=== PATIENT | male | born 1975 | race American Indian/Alaskan Native ===

== ENCOUNTER 2019-09-16 10:45 | Observation (INO) | payer OTHER ==
--- NOTE | 2019-09-16 11:22 | Event Note ---
ED Screening Note Date of service: 09/16/19 Time: 11:18 ED Screening Note: This is a 44 y.o. M. that presents to the ER with dizziness, night sweats, headache, and weakness x 2 weeks. PMH of HTN Off blood pressure medication for 6 years. Reports syncopal episode x 3 over 2 weeks. This initial assessment/diagnostic orders/clinical plan/treatment(s) is/are subject to change based on patients health status, clinical progression and re- assessment by fellow clinical providers in the ED. Further treatment and workup at subsequent clinical providers discretion. Patient/guardian urged not to elope from the ED as their condition may be serious if not clinically assessed and managed. Initial orders include: Labs
[2019-09-16 12:34] LABS: Basophils % (Auto) 0.4 % (0.0-1.8); Eosinophils % (Auto) 0.2 % (0.0-4.3); Hematocrit 45.3 % (35.5-45.6); Hemoglobin 15.3 gm/dl (11.8-15.2); Lymphocytes # (Auto) 2.2 K/mm3 (1.2-5.4); Lymphocytes % (Auto) 29.6 % (13.4-35.0); Mean Corpuscular HGB Conc 34 % (32-34); Mean Corpuscular Volume 95 fl (84-94); Monocytes # (Auto) 0.4 K/mm3 (0.0-0.8); Monocytes % (Auto) 5.8 % (0.0-7.3); Platelet Count 182 K/mm3 (140-440); Red Blood Count 4.76 M/mm3 (3.65-5.03); Red Cell Distribution Width 14.2 % (13.2-15.2)
[2019-09-16 12:44] LABS: Alanine Aminotransferase 20 units/L (7-56); Albumin 4.7 g/dL (3.9-5); BUN/Creatinine Ratio 13; Blood Urea Nitrogen 12 mg/dL (9-20); Calcium 9.6 mg/dL (8.4-10.2); Hemolysis Index 17
[2019-09-16 12:44] LABS: Bilirubin,Urine NEG (Negative); Blood,Urine NEG (Negative); Color,Urine Yellow (Yellow); Mucus,Urine 2+ /HPF; Urobilinogen,Urine < 2.0 mg/dL (<2.0)
--- NOTE | 2019-09-16 13:42 | Cat Scan Report ---
CT head/brain wo con INDICATION / CLINICAL INFORMATION: 44 years Male; Syncope, headache. TECHNIQUE: Routine CT head without contrast. All CT scans at this location are performed using CT dos e reduction for ALARA by means of automated exposure control. COMPARISON: None. FINDINGS: BRAIN / INTRACRANIAL CONTENTS: No acute hemorrhage, mass effect, midline shift, hydrocephalus, or acu te, large territorial infarct. In the right superior frontal gyrus, questionable low density area is seen. Though this may be artifactual or incidental, given the history of headaches, if there been no recent MRI scans, please obtain MR scan of the brain before and after gadolinium. CRANIOCERVICAL JUNCTION: No significant abnormality. ORBITS: No significant abnormality of visualized orbits. SINUSES / MASTOIDS: No significant abnormality of the visualized paranasal sinuses or mastoid air yakelin ls. ADDITIONAL FINDINGS: None. IMPRESSION: I do not see hemorrhage or space taking lesion in the brain Questionable low density area in the right superior frontal gyrus; if there had not been any recent M RI scans, please obtain MR scan of the brain before and after gadolinium administration. Signer Name: Sean Younger MD Signed: 09/16/2019 1:37 PM Workstation Name: [id number]
[2019-09-16] MEDS ORDERED: SODIUM CHLORIDE 0.9% 500 ML 500 ML IV ONE (14:18)
[2019-09-16] MEDS ORDERED: KETOROLAC 30 MG/1 ML INJ IV ONE (14:18)
[2019-09-16] MEDS ORDERED: HYDROcodone/ACETAMINOPHEN 5-325 MG TAB PO ONE (14:18)
[2019-09-16] MEDS ORDERED: SODIUM CHLORIDE 0.9% 1000 ML 1,000 ML ONE (14:32)
--- NOTE | 2019-09-16 14:32 | Emergency Department Report ---
HPI - General Chief Complaint: Weakness Time Seen by Provider: 09/16/19 11:18 - HPI HPI: 44-year-old -[place] male presents to the emergency department with the complaints of a two-week history of intermittent headache, some generalized weakness as well as some right arm weakness, decreased appetite, and the patient has passed out 3 times over these past 2 weeks. He had a syncopal episode 2 weeks ago, 3 days ago, and then again this morning. The headache is frontal and intermittent. He denies any vision change, slurred speech, facial droop. The patient has a questionable history of hypertension but has not been on any medications for the past few years as his blood pressure has been controlled. He has a primary care physician but has not seen them regarding his symptoms. He has not taken anything for his symptoms prior to presentation. Denies any tobacco use but does have some occasional marijuana use. ED Past Medical Hx - Past Medical History Previous Medical History?: No - Surgical History Past Surgical History?: No - Social History Smoking Status: Current Every Day Smoker Substance Use Type: Alcohol, Marijuana ED Review of Systems ROS: Stated complaint: FAINTED/VOMITING/CHEST TIGHT Other details as noted in HPI Comment: All other systems reviewed and negative Constitutional: weakness. denies: fever Eyes: denies: eye pain, vision change ENT: denies: ear pain, throat pain Respiratory: denies: cough, shortness of breath Physical Exam - Physical Exam Vital Signs: Vital Signs 09/16/19 11:18 Temperature 98.3 F Pulse Rate 96 H Respiratory 20 Rate Blood Pressure 144/101 O2 Sat by Pulse 98 Oximetry Physical Exam: GENERAL: The patient is well-developed well-nourished. HENT: Normocephalic. Atraumatic. Patient has moist mucous membranes. EYES: Extraocular motions are intact. Pupils equal reactive to light bilaterally. No nystagmus. NECK: Supple. Trachea is midline. CHEST/LUNGS: Clear to auscultation. There is no respiratory distress noted. HEART/CARDIOVASCULAR: Regular. There is no tachycardia. There is no murmur. ABDOMEN: Abdomen is soft, nontender. Patient has normal bowel sounds. There is no abdominal distention. SKIN: Skin is warm and dry. NEURO: The patient is awake, alert, and oriented. The patient is cooperative. Normal speech. No facial symmetry. No pronator drift. No dysmetria. MUSCULOSKELETAL: There is no tenderness or deformity. There is no limitation range of motion. There is no evidence of acute injury. ED Course Vital Signs 09/16/19 11:18 Temperature 98.3 F Pulse Rate 96 H Respiratory 20 Rate Blood Pressure 144/101 O2 Sat by Pulse 98 Oximetry ED Medical Decision Making - Lab Data Result diagrams: 09/16/19 12:12 09/16/19 12:12 - EKG Data -: EKG Interpreted by Me EKG shows normal: sinus rhythm, axis, intervals, QRS complexes (LVH), ST-T waves Rate: normal - EKG Data When compared to previous EKG there are: previous EKG unavailable Interpretation: LVH - Radiology Data Radiology results: report reviewed CT head/brain wo con INDICATION / CLINICAL INFORMATION: 44 years Male; Syncope, headache. TECHNIQUE: Routine CT head without contrast. All CT scans at this location are performed using CT dose reduction for ALARA by means of automated exposure control. COMPARISON: None. FINDINGS: BRAIN / INTRACRANIAL CONTENTS: No acute hemorrhage, mass effect, midline shift, hydrocephalus, or acute, large territorial infarct. In the right superior frontal gyrus, questionable low density area is seen. Though this may be artifactual or incidental, given the history of headaches, if there been no recent MRI scans, please obtain MR scan of the brain before and after gadolinium. CRANIOCERVICAL JUNCTION: No significant abnormality. ORBITS: No significant abnormality of visualized orbits. SINUSES / MASTOIDS: No significant abnormality of the visualized paranasal sinuses or mastoid air cells. ADDITIONAL FINDINGS: None. IMPRESSION: I do not see hemorrhage or space taking lesion in the brain Questionable low density area in the right superior frontal gyrus; if there had not been any recent MRI scans, please obtain MR scan of the brain before and after gadolinium administration. Signer Name: Sean Younger MD - Medical Decision Making This patient presents to the emergency department with a complaint of an intermittent frontal headache, some generalized weakness with concern for some arm weakness, multiple recent syncopal episodes. EKG does not show any morphology consistent with ST elevation AR or significant dysrhythmia. A CT scan of the head without contrast was done that did not show any obvious bleed, shift, mass. There are no obvious signs of ischemia but there was a read by radiology as a questionable low-density area in the right superior gyrus with recommendation for MRI scan. Patient's labs have been unremarkable including CBC, metabolic panel, troponin, d-dimer and thyroid level. Given the patient's intermittent headache, the abnormal CT brain and 3 episodes of syncope in the past 2 weeks including today, it is my recommendation for the patient to be admi tted to the hospital for further evaluation and treatment. Patient accepted for admission by the hospitalist, Dr Euceda. - Differential Diagnosis TIA, dysrhythmia, hypoglycemia, thyroid dysfunction Critical Care Time: No Critical care attestation.: If time is entered above; I have spent that time in minutes in the direct care of this critically ill patient, excluding procedure time. ED Disposition Clinical Impression: Recurrent syncope, Weakness, Abnormal CT of the head Headache Qualifiers: Headache type: unspecified Headache chronicity pattern: unspecified pattern Intractability: not intractable Qualified Code(s): R51 - Headache Disposition: OP ADMIT IP TO THIS HOSP Is pt being admited?: Yes Condition: Fair Referrals: PRIMARY CARE, [Primary Care Provider] - 3-5 Days Time of Disposition: 14:38
[2019-09-16 14:33] LABS: Amphetamine Screen,Urine PRESUMPTIVE NEGATIVE; Benzodiazepines Screen,Urine PRESUMPTIVE NEGATIVE; Cocaine Screen,Urine PRESUMPTIVE NEGATIVE; Methadone Screen,Urine PRESUMPTIVE NEGATIVE; Opiate Screen,Urine PRESUMPTIVE NEGATIVE
[2019-09-16 14:45] LABS: Cannabinoid Screen,Urine PRESUMPTIVE POSITIVE
--- NOTE | 2019-09-16 14:50 | History and Physical Report ---
History of Present Illness Chief complaint: I pass out every now and then History of present illness: 44 YO Male with Nicotine Dependence presents to ED for evaluation. Pt states that he has experienced intermittent headaches, generalized weakness, as well as right arm weakness over the past 2 weeks. Pt also reports over the past 3 years he has experienced multiple episodes of syncope. Pt reports that he has experi enced 3 episodes over the past 2 weeks. Pt states that his syncopal episodes are preceded by dizziness, nausea, and felling "off balance" and also feeling like the room is spinning. Pt also reports blurred vision as well as frontal headache. Pt transported to [facility] via private vehicle. Pt seen and evaluated in ED and found to have symptoms consistent with Vertigo, as well as symptoms consistent with Multiple Sclerosis. Neurology consulted in ED. Pt denies fever, chills, CP, Palpitations, Trauma, productive cough, skin rash or recent ill contacts. No prior admission for review. No medication listed for reconciliation at time of admission. Pt placed in observation status and admitted to medical floor. Past History Past Medical History: other (see hpi) Past Surgical History: No surgical history, Other (reviewed) Social history: , lives with family, smoking Family history: hypertension Medications and Allergies Allergies Allergy/AdvReac Type Severity Reaction Status Date / Time No Known Allergies Allergy Unverified 09/16/19 10:48 Review of Systems Constitutional: no weight loss, no weight gain, no fever, no chills Ears, nose, mouth and throat: vertigo, no ear pain, no ear discharge, no decreased hearing, no nose pain, no nasal discharge, no sinus pressure, no bleeding gums, no mouth pain, no dysphagia Cardiovascular: no orthopnea, no palpitations, no rapid/irregular heart beat, no syncope Respiratory: no cough, no excessive sputum, no hemoptysis, no shortness of breath, no dyspnea on exertion Gastrointestinal: nausea, no abdominal pain, no vomiting, no diarrhea, no constipation, no change in bowel habits Genitourinary Male: no dysuria, no hematuria, no flank pain, no discharge, no urinary frequency, no urinary hesitancy, no incontinence Rectal: no pain, no incontinence, no bleeding Musculoskeletal: no neck stiffness, no neck pain, no shooting arm pain, no arm numbness/tingling, no low back pain, no leg numbness/tingling Integumentary: no rash, no pruritis, no redness, no sores, no wounds Neurological: no transient paralysis, no paralysis, no weakness, no parathesias, no seizures Psychiatric: no anxiety, no memory loss, no sleep disturbances, no insomnia, no change in appetite, no change in libido Endocrine: no heat intolerance, no polyphagia, no polyuria, no nocturia Hematologic/Lymphatic: no easy bruising, no lymphadenopathy, no lymphedema Allergic/Immunologic: no urticaria, no persistent infections, no anaphylaxis Exam - Constitutional Vitals: Temp Pulse Resp BP Pulse Ox 98.3 F 96 H 20 144/101 98 09/16/19 11:18 09/16/19 11:18 09/16/19 11:18 09/16/19 11:18 09/16/19 11:18 General appearance: Present: mild distress - EENT Eyes: Present: PERRL ENT: hearing intact, clear oral mucosa - Neck Neck: Present: supple, normal ROM - Respiratory Respiratory effort: normal Respiratory: bilateral: CTA - Cardiovascular Heart Sounds: Present: S1 & S2. Absent: rub, click - Extremities Extremities: pulses symmetrical, No edema Peripheral Pulses: within normal limits - Abdominal General gastrointestinal: Present: soft, non-tender, non-distended, normal bowel sounds Male genitourinary: Present: normal - Integumentary Integumentary: Present: clear, warm, dry - Musculoskeletal Musculoskeletal: gait normal, strength equal bilaterally - Psychiatric Psychiatric: appropriate mood/affect, intact judgment & insight - Neurologic Neurologic: CNII-XII intact, moves all extremities Results - Labs CBC & Chem 7: 09/16/19 12:12 09/16/19 12:12 Labs: Abnormal lab results 09/16/19 09/16/19 09/16/19 Range/Units 11:51 12:12 12:12 Hgb 15.3 H (11.8-15.2) gm/dl MCV 95 H (84-94) fl Glucose 101 H (75-100) mg/dL Urine pH 8.0 H (5.0-7.0) Assessment and Plan - Patient Problems (1) Vertigo Current Visit: Yes Status: Acute Plan to address problem: CT head, neuro check, Meclizine, [place] Hallpike test, Vestibular rehab, anti emetic therapy (2) Nicotine dependence Current Visit: Yes Status: Acute Qualifiers: Substance use status: in withdrawal Plan to address problem: Smoking cessation counseling +15 min, supportive care. (3) Abnormal CT of the head Current Visit: Yes Status: Acute Plan to address problem: Neurology consulted, MRI as per Neurology team recommendations. (4) Multiple sclerosis Current Visit: Yes Status: Suspected Plan to address problem: CT Head, Neurology consulted, continue supportive care. Further imaging and testing as per neurology service. (5) DVT prophylaxis Current Visit: Yes Status: Acute Plan to address problem: SCD to BLE while in bed, pt ambulatory.
[2019-09-16] MEDS ORDERED: ONDANSETRON 4 MG/2 ML INJ IV PRN (16:09)
[2019-09-16] MEDS ORDERED: ACETAMINOPHEN 325 MG TAB PO PRN (16:09)
[2019-09-16] MEDS ORDERED: MECLIZINE 12.5 MG TAB PO PRN (16:11)
[2019-09-16] MEDS: SODIUM CHLORIDE 0.9% 1000 ML 1,000 ML IV SCH (18:14)
[2019-09-17] MEDS: SODIUM CHLORIDE 0.9% 1000 ML 1,000 ML IV SCH ×2 (07:09→13:53)
[2019-09-17 08:11] LABS: BUN/Creatinine Ratio 18; Blood Urea Nitrogen 14 mg/dL (9-20); Calcium 8.4 mg/dL (8.4-10.2); Hemolysis Index 3
--- NOTE | 2019-09-17 08:16 | Consultation ---
History of Present Illness Consult date: 09/17/19 Chief complaint: patient seen for recurrent sycope from descrition doubt stroke will need MRI and EEG the exam is niormal at this time full neuro exam is OK no witnesses to get hx from Past History Past Medical History: other (see hpi) Past Surgical History: No surgical history, Other (reviewed) Social history: , lives with family, smoking Family history: hypertension Medications and Allergies Allergies Allergy/AdvReac Type Severity Reaction Status Date / Time No Known Allergies Allergy Unverified 09/16/19 10:48 Home Medications Medication Instructions Recorded Confirmed Last Taken Type No Known Home Medications [No 09/16/19 09/16/19 Unknown History Reported Home Medications] Active Meds: Active Medications Acetaminophen (Tylenol) 650 mg PO Q4H PRN PRN Reason: Pain MILD(1-3)/Fever >100.5/VELAZCO Sodium Chloride (Nacl 0.9% 1000 Ml) 1,000 mls @ 100 mls/hr IV DIRECT SARA Last Admin: 09/17/19 07:09 Dose: 100 mls/hr Documented by: Meclizine HCl (Antivert) 12.5 mg PO Q12H PRN PRN Reason: Vertigo Last Admin: 09/16/19 18:09 Dose: 12.5 mg Documented by: Ondansetron HCl (Zofran) 4 mg IV Q8H PRN PRN Reason: Nausea And Vomiting Sodium Chloride (Sodium Chloride Flush Syringe 10 Ml) 10 ml IV BID SARA Last Admin: 09/16/19 22:51 Dose: 10 ml Documented by: Sodium Chloride (Sodium Chloride Flush Syringe 10 Ml) 10 ml IV PRN PRN PRN Reason: LINE FLUSH Physical Examination - Vital Signs Vital Signs: Vital Signs Temp Pulse Resp BP Pulse Ox 98.3 F 96 H 20 144/101 98 09/16/19 11:18 09/16/19 11:18 09/16/19 11:18 09/16/19 11:18 09/16/19 11:18 Results - Laboratory Findings CBC and BMP: 09/16/19 12:12 09/17/19 07:21 Abnormal Lab Findings: Abnormal Labs 09/16/19 09/16/19 09/16/19 11:51 12:12 12:12 Hgb 15.3 H MCV 95 H Glucose 101 H Urine pH 8.0 H
--- NOTE | 2019-09-17 11:40 | Progress Note ---
Assessment and Plan Assessment and plan: Vertigo CT head, neuro check, Meclizine, [place] Hallpike test, Vestibular rehab, anti emetic therapy Nicotine dependence Smoking cessation counseling +15 min, supportive care. Abnormal CT of the head Neurology consulted, MRI as per Neurology team recommendations. Multiple sclerosis: CT Head, Neurology consulted, continue supportive care. Further imaging and testing as per neurology service. History Interval history: No new issues overnight Hospitalist Physical - Constitutional Vitals: Temp Pulse Resp BP Pulse Ox 99.1 F 64 17 104/53 100 09/17/19 05:54 09/17/19 05:54 09/17/19 05:54 09/17/19 05:54 09/17/19 10:57 General appearance: Present: mild distress - EENT Eyes: Present: PERRL, EOM intact ENT: hearing intact, clear oral mucosa, dentition normal - Neck Neck: Present: supple, normal ROM - Respiratory Respiratory effort: normal Respiratory: bilateral: CTA - Cardiovascular Rhythm: regular Heart Sounds: Present: S1 & S2. Absent: gallop, rub - Extremities Extremities: no ischemia, No edema, Full ROM - Abdominal General gastrointestinal: soft, non-tender, non-distended, normal bowel sounds - Integumentary Integumentary: Present: clear, warm, dry - Neurologic Neurologic: CNII-XII intact, moves all extremities Results - Labs CBC & Chem 7: 09/16/19 12:12 09/17/19 07:21 Labs: Laboratory Last Values WBC 7.4 K/mm3 (4.5-11.0) 09/16/19 12:12 RBC 4.76 M/mm3 (3.65-5.03) 09/16/19 12:12 Hgb 15.3 gm/dl (11.8-15.2) H 09/16/19 12:12 Hct 45.3 % (35.5-45.6) 09/16/19 12:12 MCV 95 fl (84-94) H 09/16/19 12:12 MCH 32 pg (28-32) 09/16/19 12:12 MCHC 34 % (32-34) 09/16/19 12:12 RDW 14.2 % (13.2-15.2) 09/16/19 12:12 Plt Count 182 K/mm3 (140-440) 09/16/19 12:12 Lymph % (Auto) 29.6 % (13.4-35.0) 09/16/19 12:12 [place] % (Auto) 5.8 % (0.0-7.3) 09/16/19 12:12 Eos % (Auto) 0.2 % (0.0-4.3) 09/16/19 12:12 Baso % (Auto) 0.4 % (0.0-1.8) 09/16/19 12:12 Lymph # 2.2 K/mm3 (1.2-5.4) 09/16/19 12:12 [place] # 0.4 K/mm3 (0.0-0.8) 09/16/19 12:12 Eos # 0.0 K/mm3 (0.0-0.4) 09/16/19 12:12 Baso # 0.0 K/mm3 (0.0-0.1) 09/16/19 12:12 Seg Neutrophils % 64.0 % (40.0-70.0) 09/16/19 12:12 Seg Neutrophils # 4.7 K/mm3 (1.8-7.7) 09/16/19 12:12 D-Dimer < 135.00 ng/mlDDU (0-234) 09/16/19 13:37 Sodium 142 mmol/L (137-145) 09/17/19 07:21 Potassium 3.9 mmol/L (3.6-5.0) 09/17/19 07:21 Chloride 106.9 mmol/L (98-107) 09/17/19 07:21 Carbon Dioxide 22 mmol/L (22-30) 09/17/19 07:21 Anion Gap 17 mmol/L 09/17/19 07:21 BUN 14 mg/dL (9-20) 09/17/19 07:21 Creatinine 0.8 mg/dL (0.8-1.5) 09/17/19 07:21 Estimated GFR > 60 ml/min 09/17/19 07:21 BUN/Creatinine Ratio 18 % 09/17/19 07:21 Glucose 92 mg/dL (75-100) 09/17/19 07:21 Calcium 8.4 mg/dL (8.4-10.2) 09/17/19 07:21 Total Bilirubin 0.30 mg/dL (0.1-1.2) 09/16/19 12:12 AST 15 units/L (5-40) 09/16/19 12:12 ALT 20 units/L (7-56) 09/16/19 12:12 Alkaline Phosphatase 93 units/L (35-129) 09/16/19 12:12 Troponin T < 0.010 ng/mL (0.00-0.029) 09/16/19 12:12 Total Protein 8.0 g/dL (6.3-8.2) 09/16/19 12:12 Albumin 4.7 g/dL (3.9-5) 09/16/19 12:12 Albumin/Globulin Ratio 1.4 % 09/16/19 12:12 TSH 0.471 mlU/mL (0.270-4.200) 09/16/19 12:38 Urine Color Yellow (Yellow) 09/16/19 11:51 Urine Turbidity Clear (Clear) 09/16/19 11:51 Urine pH 8.0 (5.0-7.0) H 09/16/19 11:51 Ur Specific [place] 1.018 (1.003-1.030) 09/16/19 11:51 Urine Protein 30 mg/dl mg/dL (Negative) 09/16/19 11:51 Urine Glucose (UA) Neg mg/dL (Negative) 09/16/19 11:51 Urine Ketones Neg mg/dL (Negative) 09/16/19 11:51 Urine Blood Neg (Negative) 09/16/19 11:51 Urine Nitrite Neg (Negative) 09/16/19 11:51 Urine Bilirubin Neg (Negative) 09/16/19 11:51 Urine Urobilinogen < 2.0 mg/dL (<2.0) 09/16/19 11:51 Ur Leukocyte Esterase Neg (Negative) 09/16/19 11:51 Urine WBC (Auto) 6.0 /HPF (0.0-6.0) 09/16/19 11:51 Urine RBC (Auto) 3.0 /HPF (0.0-6.0) 09/16/19 11:51 U Epithel Cells (Auto) < 1.0 /HPF (0-13.0) 09/16/19 11:51 Urine Mucus 2+ /HPF 09/16/19 11:51 Urine Opiates Screen Presumptive negative 09/16/19 14:13 Urine Methadone Screen Presumptive negative 09/16/19 14:13 Ur Barbiturates Screen Presumptive negative 09/16/19 14:13 Ur Phencyclidine Scrn Presumptive negative 09/16/19 14:13 Ur Amphetamines Screen Presumptive negative 09/16/19 14:13 U Benzodiazepines Scrn Presumptive negative 09/16/19 14:13 Urine Cocaine Screen Presumptive negative 09/16/19 14:13 U Marijuana (THC) Screen Presumptive positive 09/16/19 14:13 Drugs of Abuse Note Disclamer 09/16/19 14:13 Active Medications - Current Medications Current Medications: Generic Name Dose Route Start Last Admin Trade Name Freq PRN Reason Stop Dose Admin Acetaminophen 650 mg 09/16/19 16:09 Tylenol PO Q4H PRN Pain MILD(1-3)/Fever >100.5/VELAZCO Sodium Chloride 1,000 mls @ 100 mls/hr 09/16/19 17:00 09/17/19 07:09 Nacl 0.9% 1000 Ml IV 100 mls/hr DIRECT SARA Administration Meclizine HCl 12.5 mg 09/16/19 16:11 09/16/19 18:09 Antivert PO 12.5 mg Q12H PRN Administration Vertigo Ondansetron HCl 4 mg 09/16/19 16:09 Zofran IV Q8H PRN Nausea And Vomiting Sodium Chloride 10 ml 09/16/19 22:00 09/17/19 09:19 Sodium Chloride Flush Syringe 10 Ml IV Not Given BID SARA Sodium Chloride 10 ml 09/16/19 16:09 Sodium Chloride Flush Syringe 10 Ml IV PRN PRN LINE FLUSH
[2019-09-18] MEDS: SODIUM CHLORIDE 0.9% 1000 ML 1,000 ML IV SCH ×2 (01:12→14:52)
--- NOTE | 2019-09-18 15:06 | Magnetic Resonance Report ---
MR brain wo con INDICATION / CLINICAL INFORMATION: 44 years Male; CVA/TIA. TECHNIQUE: Multiplanar, multisequence MR images of the brain were obtained. COMPARISON: CT - 09/16/2019 FINDINGS: BRAIN / INTRACRANIAL CONTENTS: No acute hemorrhage, mass effect, midline shift, hydrocephalus, or acu te, large territorial infarct. No chronic infarct or atrophy. No significant white matter abnormality . CRANIOCERVICAL JUNCTION: No significant abnormality. VASCULAR FLOW-VOIDS: No significant abnormality. ORBITS: No significant abnormality of visualized orbits. SINUSES / MASTOIDS: Mild mucosal thickening seen in the ethmoids. ADDITIONAL FINDINGS: None. IMPRESSION: 1. No focal mass, hemorrhage, hydrocephalus, or acute ischemia. Signer Name: Baldo Cormier MD, III Signed: 09/18/2019 3:02 PM Workstation Name: [id number]
--- NOTE | 2019-09-18 18:06 | Discharge Summary ---
Providers - Providers Date of Admission: 09/16/19 14:38 Date of discharge: 09/18/19 Attending physician: MRAY CORTES 09/16/19 16:09 Consult to Physician [CONS] Routine Comment: Consulting Provider: KATIE MEYERS Physician Instructions: Reason For Exam: Vertigo 09/16/19 16:18 Physical Therapy Evaluation and Treat [CONS] Routine Comment: Reason For Exam: [place] Hallpike Test, Vestibular Rehab training Primary care physician: SOIL TESTER Hospitalization Condition: Fair Pertinent studies: MRI Normal CT Head NAF Hospital course: 44 YO Male with Nicotine Dependence presents to ED for evaluation. Pt states that he has experienced intermittent headaches, generalized weakness, as well as right arm weakness over the past 2 weeks. Pt also reports over the past 3 years he has experienced multiple episodes of syncope. Pt reports that he has experienced 3 episodes over the past 2 weeks. Pt states that his syncopal episodes are preceded by dizziness, nausea, and felling "off balance" and also feeling like the room is spinning. Pt also reports blurred vision as well as frontal headache. No focal deficits. (1) TIA Current Visit: Yes Status: Acute Plan to address problem: MRI negative D/c on Plavix and ASA to prevent strokes (2) Nicotine dependence Current Visit: Yes Status: Acute Qualifiers: Substance use status: in withdrawal Plan to address problem: Smoking cessation counseling +15 min, supportive care. (3) Multiple sclerosis Current Visit: Yes Status: Suspected Plan to address problem: F/o with MS clinic Able to walk normally Disposition: DC-01 TO HOME OR SELFCARE Core Measure Documentation - Palliative Care Palliative Care/ Comfort Measures: Not Applicable - Core Measures Any of the following diagnoses?: none Exam - Constitutional Vitals: Temp Pulse Resp BP Pulse Ox 98.1 F 66 18 131/85 98 09/18/19 16:32 09/18/19 16:32 09/18/19 16:32 09/18/19 16:32 09/18/19 16:32 General appearance: Present: no acute distress, well-nourished - EENT Eyes: Present: PERRL ENT: hearing intact, clear oral mucosa - Neck Neck: Present: supple, normal ROM - Respiratory Respiratory effort: normal Respiratory: bilateral: CTA - Cardiovascular Heart rate: 78 Rhythm: regular Heart Sounds: Present: S1 & S2. Absent: rub, click - Extremities Extremities: pulses symmetrical, No edema Peripheral Pulses: within normal limits - Abdominal General gastrointestinal: Present: soft, non-tender, non-distended, normal bowel sounds Male genitourinary: Present: normal - Integumentary Integumentary: Present: clear, warm, dry - Musculoskeletal Musculoskeletal: gait normal, strength equal bilaterally - Psychiatric Psychiatric: appropriate mood/affect, intact judgment & insight - Neurologic Neurologic: CNII-XII intact, moves all extremities Plan Activity: no restrictions Diet: regular Follow up with: PRIMARY CARE, [Primary Care Provider] - 3-5 Days
[2019-09-18 20:57] VITALS: BP 140/88
== END 2019-09-18 21:12 | disposition home or self-care (01) ==
LOC: ED 10:45 → 3A 14:38
PROVIDERS: ADMIT Internal Medicine; ATTEND Internal Medicine
DX: R42 Dizziness and giddiness (principal); R55 Syncope and collapse; R53.1 Weakness; G45.9 Transient cerebral ischemic attack, unspecified; R51 Headache; R93.0 Abnormal findings on diagnostic imaging of skull and head, not elsewhere classified; G35 Multiple sclerosis; Z71.6 Tobacco abuse counseling; F17.200 Nicotine dependence, unspecified, uncomplicated; Z79.899 Other long term (current) drug therapy
CPT/HCPCS: 36415; 70450; 70551; 80048; 80053; 80307; 81001; 84443; 84484; 85025; 85379; 93005; 93010; 96361; 96374; 97116; 97161; 99284; G0378; J1885; J7030